=== PATIENT | male | born 1955 | race Hispanic/Latino ===

== ENCOUNTER → 2018-07-21 | Outpatient (CLI) | payer OTHER | END | disposition home or self-care (01) | LOC: OIH 09:44 | PROVIDERS: ATTEND Internal Medicine | DX: M85.842 Other specified disorders of bone density and structure, left hand (principal); M85.841 Other specified disorders of bone density and structure, right hand; M06.4 Inflammatory polyarthropathy | CPT/HCPCS: 73130 ==

== ENCOUNTER → 2020-06-17 | Outpatient (CLI) | payer OTHER, MEDICARE | END | disposition home or self-care (01) | LOC: SHCH 14:45 | PROVIDERS: ATTEND Internal Medicine Cardiovascular Disease | DX: I87.2 Venous insufficiency (chronic) (peripheral) (principal) | CPT/HCPCS: 93970 ==

== ENCOUNTER 2020-07-17 13:38 | Emergency (ER) | payer OTHER, MEDICARE ==
[2020-07-17] MEDS ORDERED: ALPRAZOLAM 0.25 MG TABLET ONE (14:45)
[2020-07-17 15:38] LABS: BASOPHILS % (AUTO) 0.3 % (0.0-5.0); EOSINOPHILS % (AUTO) 2.3 % (0.0-8.0); HEMATOCRIT 41.6 % (42-54); LYMPHOCYTES % (AUTO) 14.3 % (21.0-51.0); MEAN CORPUSCULAR HEMOGLOBIN 29.6 pg (27.0-33.0); MEAN CORPUSCULAR HGB CONC 33.2 g/dL (32.0-36.0); MEAN CORPUSCULAR VOLUME 89.1 fL (79-99); NEUTROPHILS % (AUTO) 72.4 % (40.0-77.0); PLATELET COUNT (AUTO) 266 K/uL (130-400); RED BLOOD CELL COUNT(AUTO) 4.67 MIL/uL (4.50-6.20); RED CELL DISTRIBUTION WIDTH 14.4 % (11.0-15.5); WHITE BLOOD COUNT (AUTO) 11.8 K/uL (4.8-10.8)
[2020-07-17 15:48] LABS: CREATININE 0.9 mg/dL (0.5-1.5)
== END 2020-07-17 16:22 | disposition home or self-care (01) ==
LOC: EDH 13:38
DX: J01.00 Acute maxillary sinusitis, unspecified (principal); E11.9 Type 2 diabetes mellitus without complications; I10 Essential (primary) hypertension; M06.9 Rheumatoid arthritis, unspecified; Z98.890 Other specified postprocedural states
CPT/HCPCS: 36415; 70450; 80048; 85025; 93005

== ENCOUNTER 2020-07-23 23:57 | Inpatient (IN) | payer OTHER, MEDICARE ==
[~2020-07-23] VITALS: Ht 175.3 cm; Wt 69.2 kg
[2020-07-24] VITALS (8 sets, daily range): BP systolic 148–157; BP diastolic 81–91
[2020-07-24] MEDS ORDERED: CEFTRIAXONE SODIUM 2 GM VIAL ONE (00:19)
[2020-07-24] MEDS ORDERED: AZITHROMYCIN 500MG+NS 250ML 250 ML IV ONE (00:19)
[2020-07-24 00:27] LABS: BASOPHILS % (AUTO) 0.2 % (0.0-5.0); HEMATOCRIT 44.8 % (42-54); LYMPHOCYTES % (AUTO) 11.7 % (21.0-51.0); MEAN CORPUSCULAR HEMOGLOBIN 29.1 pg (27.0-33.0); MEAN CORPUSCULAR HGB CONC 33.5 g/dL (32.0-36.0); PLATELET COUNT (AUTO) 196 K/uL (130-400); RED BLOOD CELL COUNT(AUTO) 5.15 MIL/uL (4.50-6.20); RED CELL DISTRIBUTION WIDTH 14.6 % (11.0-15.5); WHITE BLOOD COUNT (AUTO) 8.4 K/uL (4.8-10.8)
[2020-07-24 00:30] LABS: ABG BASE EXCESS -2.1 mmol/L (-2.0-3.0); ABG HCO3 20.5 mmol/L (21.0-28.0); ABG OXYGEN SATURATION 92.2 % (95.0-99.0); ABG PCO2 30 mmHg (35-48)
[2020-07-24 00:31] LABS: INR 0.93 (0.85-1.15); PARTIAL THROMBOPLASTIN TIME 27.4 SEC (26.3-35.5); PROTHROMBIN TIME 10.1 SEC (9.6-11.6)
[2020-07-24 00:37] LABS: ALBUMIN 3.7 g/dL (3.5-5.0); BILIRUBIN,TOTAL 0.4 mg/dL (0.2-1.0); CREATININE 1.1 mg/dL (0.5-1.5); POTASSIUM 4.3 mmol/L (3.5-5.1); TOTAL PROTEIN, SERUM 8.9 g/dL (6.0-8.3)
[2020-07-24 00:56] LABS: B-TYPE NATRIURETIC PEPTIDE 53 pg/mL (0-100)
[2020-07-24] MEDS ORDERED: DEXAMETHASONE SOD PHOSPHATE 10MG/ML 1ML VIAL ONE (01:07)
[2020-07-24] MEDS ORDERED: SODIUM CHLORIDE 0.9% 500ML 500 ML IV ONE (01:08)
[2020-07-24] MEDS ORDERED: ACETAMINOPHEN EXTRA STRENGTH 500 MG TABLET ONE (01:08)
[2020-07-24] MEDS ORDERED: IOHEXOL-350 75 ML VIAL IV ONE (01:33)
[2020-07-24] MEDS ORDERED: ACETAMINOPHEN 325 MG TAB PO PRN (03:00)
[2020-07-24] MEDS: CEFTRIAXONE SODIUM 1 GM IVP SCH (03:00)
[2020-07-24] MEDS ORDERED: ONDANSETRON HCL 4 MG/2 ML VIAL IVP PRN (03:00)
[2020-07-24 03:13] LABS: APPEARANCE,URINE Clear (CLEAR); BILIRUBIN,URINE Negative (NEGATIVE); COLOR,URINE Yellow (YELLOW); GLUCOSE, URINE (UA) 250 mg/dL (NEGATIVE); KETONES,URINE Trace mg/dL (NEGATIVE); LEUKOCYTE ESTERASE ,URINE Negative (NEGATIVE); NITRATE,URINE Negative (NEGATIVE); OCCULT BLOOD,URINE Small (NEGATIVE); PH,URINE 6.5 (5.0-8.0); PROTEIN,URINE POS 2+ mg/dL (NEGATIVE); UROBILINOGEN,URINE 0.2 mg/dL (0.2-1.0)
[2020-07-24 03:44] LABS: BACTERIA,URINE None Seen /HPF (None Seen); MUCUS,URINE Few LPF (None Seen); RBC,URINE 0-1 /HPF (0-1); WBC,URINE 0-1 /HPF (0-1)
[2020-07-24] MEDS: AZITHROMYCIN 500MG+NS 250ML 250 ML IV SCH ×2 (04:00→09:00)
[2020-07-24] MEDS ORDERED: IPRATROPIUM/ALBUTEROL SULFATE 3 ML SOLUTION IH SCH (06:00)
[2020-07-24] MEDS ORDERED: ALBUTEROL INHALER 90MCG/INH IH PRN (07:00)
[2020-07-24] MEDS ORDERED: ENOXAPARIN SODIUM 40 MG/0.4 ML SYRINGE SQ ONE (08:37)
[2020-07-24] MEDS ORDERED: PANTOPRAZOLE SODIUM 40 MG TABLET.DR ONE (08:38)
[2020-07-24] MEDS ORDERED: ENOXAPARIN SODIUM 40 MG/0.4 ML SYRINGE SQ SCH (09:00)
[2020-07-24] MEDS ORDERED: PHARMACY COMMUNICATION MISC SCH (09:45)
[2020-07-24 12:00] LABS: BASOPHILS % (AUTO) 0.2 % (0.0-5.0); HEMATOCRIT 43.9 % (42-54); LYMPHOCYTES % (AUTO) 6.4 % (21.0-51.0); MEAN CORPUSCULAR HEMOGLOBIN 29.5 pg (27.0-33.0); MEAN CORPUSCULAR HGB CONC 33.3 g/dL (32.0-36.0); MEAN CORPUSCULAR VOLUME 88.7 fL (79-99); MONOCYTES % (AUTO) 5.8 % (3.0-13.0); NEUTROPHILS % (AUTO) 86.5 % (40.0-77.0); PLATELET COUNT (AUTO) 194 K/uL (130-400); RED BLOOD CELL COUNT(AUTO) 4.95 MIL/uL (4.50-6.20); RED CELL DISTRIBUTION WIDTH 14.6 % (11.0-15.5); WHITE BLOOD COUNT (AUTO) 6.4 K/uL (4.8-10.8)
[2020-07-24 12:08] LABS: CREATININE 1.1 mg/dL (0.5-1.5); POTASSIUM 5.5 mmol/L (3.5-5.1)
[2020-07-24 12:23] LABS: ALBUMIN 3.2 g/dL (3.5-5.0); BILIRUBIN,TOTAL 0.4 mg/dL (0.2-1.0); TOTAL PROTEIN, SERUM 8.1 g/dL (6.0-8.3)
[2020-07-24] MEDS: MULTIVITAMIN TABLET PO SCH (12:33)
[2020-07-24] MEDS: ZINC SULFATE 220 CAPSULE PO SCH (12:33)
[2020-07-24] MEDS: DEXAMETHASONE 4 MG TAB PO SCH (12:33)
[2020-07-24] MEDS: PANTOPRAZOLE SODIUM 40 MG TABLET.DR PO SCH (12:34)
[2020-07-24] MEDS: ASCORBIC ACID 500 MG TAB PO SCH ×2 (12:34→19:31)
[2020-07-24] MEDS: OSELTAMIVIR PHOSPHATE 75 MG CAP PO SCH ×2 (12:34→19:31)
[2020-07-24] MEDS: PHARMACY COMMUNICATION MISC SCH ×2 (14:00→22:00)
[2020-07-24] MEDS: ENOXAPARIN SODIUM 40 MG/0.4 ML SYRINGE SQ SCH ×2 (18:00→19:31)
[2020-07-24] MEDS ORDERED: GLUCAGON 1MG KIT 1 MG ML IM PRN (18:00)
[2020-07-24] MEDS: INSULIN HUMULIN R 100 UNIT/ML 3ML SQ SCH (18:40)
[2020-07-24] MEDS ORDERED: TRAZODONE HCL 50 MG TAB ONE (22:37)
[2020-07-24] MEDS: TRAZODONE HCL 50 MG TAB PO SCH (22:56)
[2020-07-25] VITALS (25 sets, daily range): BP systolic 123–168; BP diastolic 62–91
[2020-07-25] MEDS: PHARMACY COMMUNICATION MISC SCH (02:00)
[2020-07-25] MEDS: CEFTRIAXONE SODIUM 1 GM IVP SCH (02:42)
[2020-07-25 05:19] LABS: BASOPHILS % (AUTO) 0.2 % (0.0-5.0); HEMATOCRIT 47.7 % (42-54); LYMPHOCYTES % (AUTO) 7.2 % (21.0-51.0); MEAN CORPUSCULAR HEMOGLOBIN 28.7 pg (27.0-33.0); MEAN CORPUSCULAR HGB CONC 32.5 g/dL (32.0-36.0); MEAN CORPUSCULAR VOLUME 88.2 fL (79-99); MONOCYTES % (AUTO) 6.9 % (3.0-13.0); NEUTROPHILS % (AUTO) 85.1 % (40.0-77.0); PLATELET COUNT (AUTO) 230 K/uL (130-400); RED BLOOD CELL COUNT(AUTO) 5.41 MIL/uL (4.50-6.20); RED CELL DISTRIBUTION WIDTH 14.4 % (11.0-15.5); WHITE BLOOD COUNT (AUTO) 11.8 K/uL (4.8-10.8)
--- NOTE | 2020-07-25 05:41 | NUR ---
Patient rested well during tour with no distress noted. alert and orient x4. Brace noted to left lower extremity with harper wrap tied around to hold brace in place. Patient state previous surgery approx 5 years ago. Brace taken off and no skin breakdown noted at this time. deformity noted. patient states he would like to sleep in brace. Brace placed on left lower extremity with no problems noted. right bka noted with stocking noted to stump. Able to turn self in bed with no problems. Patient states a lack of sleep. provider
[2020-07-25 05:46] LABS: ALBUMIN 3.2 g/dL (3.5-5.0); BILIRUBIN,TOTAL 0.3 mg/dL (0.2-1.0); CREATININE 1.2 mg/dL (0.5-1.5); POTASSIUM 4.8 mmol/L (3.5-5.1); TOTAL PROTEIN, SERUM 8.5 g/dL (6.0-8.3)
--- NOTE | 2020-07-25 05:51 | NUR ---
Patient rested well during tour with no distress noted. alert and orient x4. Brace noted to left lower extremity with harper wrap tied around to hold brace in place. Patient state previous surgery approx 5 years ago. Brace taken off and no skin breakdown noted at this time. deformity noted. patient states he would like to sleep in brace. Brace placed on left lower extremity with no problems noted. right bka noted with stocking noted to stump. Able to turn self in bed with no problems. Patient states a lack of sleep and not being able to sleep in the last three days. provider Quinn Mccarthy notified in regards to patient having insomnia and high blood pressures ranging 150s-160s systolic and diastolic max of 80s. Provider gave verbal order for insomnia and states no meds needed for bp at this time. Patient medicated for insomnia with noted drowsiness during tour. Patient continues to sleep well and easily aroused at this time. will communicate nurse to ensure patient has consent for plasma before administering. Patient resting well with no distress noted. bed locked in low position with siderails up x2. call light within reach. will continue to monitor as needed.
[2020-07-25] MEDS: INSULIN HUMULIN R 100 UNIT/ML 3ML SQ SCH ×6 (06:18→20:34)
[2020-07-25] MEDS: ASCORBIC ACID 500 MG TAB PO SCH ×2 (08:28→19:32)
[2020-07-25] MEDS: AZITHROMYCIN 500MG+NS 250ML 250 ML IV SCH (08:28)
[2020-07-25] MEDS: OSELTAMIVIR PHOSPHATE 75 MG CAP PO SCH ×2 (08:29→19:32)
[2020-07-25] MEDS: ZINC SULFATE 220 CAPSULE PO SCH (08:29)
[2020-07-25] MEDS: DEXAMETHASONE 4 MG TAB PO SCH (08:29)
[2020-07-25] MEDS: PANTOPRAZOLE SODIUM 40 MG TABLET.DR PO SCH (08:29)
[2020-07-25] MEDS: MULTIVITAMIN TABLET PO SCH (08:29)
[2020-07-25] MEDS: ENOXAPARIN SODIUM 40 MG/0.4 ML SYRINGE SQ SCH ×2 (08:30→19:32)
[2020-07-25] MEDS ORDERED: SODIUM CHLORIDE 0.9% 250 ML IV ONE (09:24)
--- NOTE | 2020-07-25 12:55 | NUR ---
CHART CHECK COMPLETED. Pt IS A 65 Y.O. MALE ADMITTED SECONDARY TO COVID PNEUMONIA. Pt HAS A PAST MEDICAL HISTORY SIGNIFICANT FOR DM, HTN, HLD, PVD WITH R BKA, DIABETIC NEUROPATHY, TOBACCO USE POSSIBLE COPD UNDERLYING. Pt CURRENTLY ON REGULAR TEXTURE, THIN LIQUID DIET. PLEASE REQUEST FORMAL SKILLED SPEECH/SWALLOW EVALUATION IF Pt PRESENTS WITH +S/S OF ASPIRATION SUCH COUGH RESPONSE, THROAT CLEAR, OR WET VOCAL QUALITY DURING P.O. Addendum: 07/25/20 at 1255 by TRISTON RITTER, [facility] Amended: Links added.
[2020-07-25] MEDS: LOSARTAN 50 MG TABLET PO SCH (13:37)
[2020-07-25] MEDS: METOPROLOL SUCCINATE 50 MG TAB.SR.24H PO SCH (13:37)
[2020-07-25] MEDS ORDERED: FUROSEMIDE 20 MG TABLET PO SCH (14:00)
--- NOTE | 2020-07-25 14:56 | NUR ---
1440 received telephone consent from for IM Letter(pt in [facility]), I faxed IM Letter to [phone].
--- NOTE | 2020-07-25 15:58 | NUR ---
DC PLAN VISITED WITH PATIENT. PATIENT LIVES WITH SPOUSE. SEMI INDEPENDENT ABLE TO PERFORM SOME ADL'S. PATIENT HAS WHEEL CHAIR. PROVIDER 32 HRS. FEELS SAFE TO RETURN HOME. Addendum: 07/25/20 at 1600 by BESSIE OBRIEN RN CM Amended: Links added.
[2020-07-25] MEDS ORDERED: REMDESIVIR (EUA) 520 200 MG in SODIUM CHLORIDE 0.9% 250 ML IV ONE (16:00)
[2020-07-25] MEDS ORDERED: COMPOUND IV REFRIGERATED 1 EACH IVSOLN MISC PRN (16:00)
[2020-07-25] MEDS: TRAZODONE HCL 100 MG TABLET PO SCH (19:32)
[2020-07-25] MEDS: DIAZEPAM 5 MG TABLET PO PRN (19:33)
[2020-07-25] MEDS: TRAZODONE HCL 50 MG TAB PO SCH (19:38)
[2020-07-25] MEDS: INSULIN GLARGINE 100 UNITS/ML 10 ML VIAL SQ SCH (21:00)
[2020-07-26] VITALS (14 sets, daily range): BP systolic 93–183; BP diastolic 44–93
[2020-07-26] MEDS: DIAZEPAM 5 MG TABLET PO PRN ×2 (03:03→11:36)
[2020-07-26] MEDS: CEFTRIAXONE SODIUM 1 GM IVP SCH (03:03)
[2020-07-26 04:10] LABS: HEMATOCRIT 42.3 % (42-54); MEAN CORPUSCULAR HEMOGLOBIN 28.8 pg (27.0-33.0); MEAN CORPUSCULAR HGB CONC 32.9 g/dL (32.0-36.0); MEAN CORPUSCULAR VOLUME 87.6 fL (79-99); RED BLOOD CELL COUNT(AUTO) 4.83 MIL/uL (4.50-6.20); RED CELL DISTRIBUTION WIDTH 14.1 % (11.0-15.5); WHITE BLOOD COUNT (AUTO) 11.2 K/uL (4.8-10.8)
[2020-07-26 04:40] LABS: CARBON DIOXIDE 25 mmol/L (21-32); CHLORIDE 97 mmol/L (101-111); CREATININE 0.9 mg/dL (0.5-1.5); GLOMERULAR FILTR. RATE CALC 89 mL/min (>60); GLUCOSE,RANDOM 130 mg/dL (70-105); LACTATE DEHYDROGENASE 648 U/L (81-234); POTASSIUM 3.9 mmol/L (3.5-5.1); SODIUM SERUM 133 mmol/L (136-145); UREA NITROGEN, BLOOD 17 mg/dL (7-18)
[2020-07-26] MEDS: PHARMACY COMMUNICATION MISC SCH (06:00)
[2020-07-26] MEDS: INSULIN HUMULIN R 100 UNIT/ML 3ML SQ SCH ×7 (06:22→21:00)
--- NOTE | 2020-07-26 06:38 | NUR ---
Brace noted to left lower extremity with harper wrap tied around to hold brace in place taken off before patient went to bed. Patient state previous surgery approx 5 years ago. Able to turn self in bed with no problems. Anxiety noted during tour and patient medicated as ordered x2. patient continues to states he can not breath with a nonrebreather with sats ranging from 94-100%. RT notified and assess and states will continue to monitor patient. Bed locked in low position with siderails up x2. call light within reach. will continue to monitor during tour as needed.
[2020-07-26] MEDS: INSULIN GLARGINE 100 UNITS/ML 10 ML VIAL SQ SCH ×2 (09:30→22:00)
[2020-07-26] MEDS: AZITHROMYCIN 500MG+NS 250ML 250 ML IV SCH (09:35)
[2020-07-26] MEDS: OSELTAMIVIR PHOSPHATE 75 MG CAP PO SCH ×2 (09:38→22:00)
[2020-07-26] MEDS: ZINC SULFATE 220 CAPSULE PO SCH (09:38)
[2020-07-26] MEDS: ASPIRIN 81MG TAB.CHEW PO SCH (09:38)
[2020-07-26] MEDS: MULTIVITAMIN TABLET PO SCH (09:38)
[2020-07-26] MEDS: DEXAMETHASONE 4 MG TAB PO SCH (09:39)
[2020-07-26] MEDS: LOSARTAN 50 MG TABLET PO SCH (09:40)
[2020-07-26] MEDS: METOPROLOL SUCCINATE 50 MG TAB.SR.24H PO SCH (09:40)
[2020-07-26] MEDS: ASCORBIC ACID 500 MG TAB PO SCH ×2 (09:41→22:00)
[2020-07-26] MEDS: PANTOPRAZOLE SODIUM 40 MG TABLET.DR PO SCH (09:41)
[2020-07-26] MEDS: ENOXAPARIN SODIUM 40 MG/0.4 ML SYRINGE SQ SCH ×2 (09:42→22:00)
[2020-07-26 09:51] LABS: ALBUMIN 3.2 g/dL (3.5-5.0); BILIRUBIN,DIRECT 0.2 mg/dL (0.0-0.3); BILIRUBIN,TOTAL 0.6 mg/dL (0.2-1.0); TOTAL PROTEIN, SERUM 8.4 g/dL (6.0-8.3)
[2020-07-26 09:56] LABS: CREATININE 1.1 mg/dL (0.5-1.5)
[2020-07-26] MEDS: REMDESIVIR (EUA) 520 100 MG in SODIUM CHLORIDE 0.9% 250 ML IV SCH (15:22)
[2020-07-26] MEDS ORDERED: FUROSEMIDE 10 MG/ML 2ML VIAL IV SCH (18:00)
[2020-07-26] MEDS: ARTIFICIAL TEARS 3.5 GM OINTMENT OU SCH (22:00)
[2020-07-26] MEDS: TRAZODONE HCL 100 MG TABLET PO SCH (22:00)
[2020-07-26] MEDS: DEXAMETHASONE SOD PHOSPHATE 4 MG/ML 1ML VIAL IVP SCH (22:00)
[2020-07-26] MEDS: TRAZODONE HCL 50 MG TAB PO SCH (22:00)
[2020-07-27] VITALS (25 sets, daily range): BP systolic 94–149; BP diastolic 56–76
[2020-07-27 04:34] LABS: ABG BASE EXCESS -1.9 mmol/L (-2.0-3.0); ABG HCO3 21.7 mmol/L (21.0-28.0); ABG OXYGEN SATURATION 92.1 % (95.0-99.0); ABG PCO2 34 mmHg (35-48)
[2020-07-27 05:22] LABS: BASOPHILS % (AUTO) 0.2 % (0.0-5.0); EOSINOPHILS % (AUTO) 3.5 % (0.0-8.0); HEMATOCRIT 41.2 % (42-54); MEAN CORPUSCULAR HEMOGLOBIN 28.6 pg (27.0-33.0); MEAN CORPUSCULAR VOLUME 86.7 fL (79-99); MONOCYTES % (AUTO) 4.4 % (3.0-13.0); NEUTROPHILS % (AUTO) 84.2 % (40.0-77.0); PLATELET COUNT (AUTO) 158 K/uL (130-400); RED BLOOD CELL COUNT(AUTO) 4.75 MIL/uL (4.50-6.20); RED CELL DISTRIBUTION WIDTH 14.1 % (11.0-15.5)
[2020-07-27 05:35] LABS: CREATININE 0.9 mg/dL (0.5-1.5); POTASSIUM 4.1 mmol/L (3.5-5.1)
[2020-07-27] MEDS: PHARMACY COMMUNICATION MISC SCH (06:00)
[2020-07-27] MEDS: CEFTRIAXONE SODIUM 1 GM IVP SCH (06:50)
[2020-07-27] MEDS: INSULIN HUMULIN R 100 UNIT/ML 3ML SQ SCH ×8 (06:58→21:14)
[2020-07-27] MEDS: ZINC SULFATE 220 CAPSULE PO SCH (09:31)
[2020-07-27] MEDS: LOSARTAN 50 MG TABLET PO SCH (09:31)
[2020-07-27] MEDS: MULTIVITAMIN TABLET PO SCH (09:31)
[2020-07-27] MEDS: METOPROLOL SUCCINATE 50 MG TAB.SR.24H PO SCH (09:31)
[2020-07-27] MEDS: ASPIRIN 81MG TAB.CHEW PO SCH (09:31)
[2020-07-27] MEDS: DEXAMETHASONE SOD PHOSPHATE 4 MG/ML 1ML VIAL IVP SCH ×2 (09:31→21:05)
[2020-07-27] MEDS: ASCORBIC ACID 500 MG TAB PO SCH ×2 (09:31→21:02)
[2020-07-27] MEDS: OSELTAMIVIR PHOSPHATE 75 MG CAP PO SCH ×2 (09:31→21:02)
[2020-07-27] MEDS: ENOXAPARIN SODIUM 40 MG/0.4 ML SYRINGE SQ SCH ×2 (09:32→21:06)
[2020-07-27] MEDS: AZITHROMYCIN 500MG+NS 250ML 250 ML IV SCH (09:32)
[2020-07-27 09:35] LABS: ALBUMIN 2.9 g/dL (3.5-5.0); BILIRUBIN,DIRECT 0.2 mg/dL (0.0-0.3); BILIRUBIN,TOTAL 0.6 mg/dL (0.2-1.0); TOTAL PROTEIN, SERUM 7.3 g/dL (6.0-8.3)
[2020-07-27] MEDS: INSULIN GLARGINE 100 UNITS/ML 10 ML VIAL SQ SCH ×2 (09:35→21:11)
[2020-07-27] MEDS: PANTOPRAZOLE SODIUM 40 MG TABLET.DR PO SCH (09:55)
[2020-07-27] MEDS: REMDESIVIR (EUA) 520 100 MG in SODIUM CHLORIDE 0.9% 250 ML IV SCH (18:24)
[2020-07-27] MEDS: ARTIFICIAL TEARS 3.5 GM OINTMENT OU SCH (21:00)
[2020-07-27] MEDS: DIAZEPAM 5 MG TABLET PO PRN (21:02)
[2020-07-27] MEDS: TRAZODONE HCL 100 MG TABLET PO SCH (21:02)
[2020-07-27] MEDS: FUROSEMIDE 10 MG/ML 2ML VIAL IV SCH (21:04)
[2020-07-27] MEDS: ACETAMINOPHEN 325 MG TAB PO PRN (21:04)
[2020-07-27] MEDS: TRAZODONE HCL 50 MG TAB PO SCH (22:45)
[2020-07-28] VITALS (20 sets, daily range): BP systolic 99–159; BP diastolic 51–84
[2020-07-28 04:25] LABS: HEMATOCRIT 39.8 % (42-54); MEAN CORPUSCULAR HEMOGLOBIN 29.6 pg (27.0-33.0); MEAN CORPUSCULAR HGB CONC 34.2 g/dL (32.0-36.0); MEAN CORPUSCULAR VOLUME 86.5 fL (79-99); RED BLOOD CELL COUNT(AUTO) 4.6 MIL/uL (4.50-6.20); RED CELL DISTRIBUTION WIDTH 14.2 % (11.0-15.5); WHITE BLOOD COUNT (AUTO) 8.7 K/uL (4.8-10.8)
[2020-07-28 04:40] LABS: ALBUMIN 2.8 g/dL (3.5-5.0); BILIRUBIN,DIRECT 0.2 mg/dL (0.0-0.3); BILIRUBIN,TOTAL 0.6 mg/dL (0.2-1.0); CREATININE 0.9 mg/dL (0.5-1.5); CRP QUANTITATIVE 85.9 mg/L (0.00-9.0); POTASSIUM 3.9 mmol/L (3.5-5.1); TOTAL PROTEIN, SERUM 7.2 g/dL (6.0-8.3)
[2020-07-28] MEDS: CEFTRIAXONE SODIUM 1 GM IVP SCH (04:57)
[2020-07-28] MEDS: PHARMACY COMMUNICATION MISC SCH (06:00)
[2020-07-28 07:17] LABS: ABG BASE EXCESS -2.6 mmol/L (-2.0-3.0); ABG HCO3 21.5 mmol/L (21.0-28.0); ABG OXYGEN SATURATION 98.3 % (95.0-99.0); ABG PCO2 35 mmHg (35-48)
[2020-07-28] MEDS: INSULIN HUMULIN R 100 UNIT/ML 3ML SQ SCH ×4 (07:30→19:45)
[2020-07-28] MEDS: ASCORBIC ACID 500 MG TAB PO SCH ×2 (09:47→19:35)
[2020-07-28] MEDS: ZINC SULFATE 220 CAPSULE PO SCH (09:47)
[2020-07-28] MEDS: DEXAMETHASONE SOD PHOSPHATE 4 MG/ML 1ML VIAL IVP SCH ×2 (09:47→19:34)
[2020-07-28] MEDS: ASPIRIN 81MG TAB.CHEW PO SCH (09:47)
[2020-07-28] MEDS: METOPROLOL SUCCINATE 50 MG TAB.SR.24H PO SCH (09:47)
[2020-07-28] MEDS: OSELTAMIVIR PHOSPHATE 75 MG CAP PO SCH ×2 (09:47→19:35)
[2020-07-28] MEDS: AZITHROMYCIN 500MG+NS 250ML 250 ML IV SCH (09:47)
[2020-07-28] MEDS: ENOXAPARIN SODIUM 40 MG/0.4 ML SYRINGE SQ SCH ×2 (09:48→19:35)
[2020-07-28] MEDS: MULTIVITAMIN TABLET PO SCH (09:48)
[2020-07-28] MEDS: PANTOPRAZOLE SODIUM 40 MG TABLET.DR PO SCH (09:48)
[2020-07-28] MEDS: INSULIN GLARGINE 100 UNITS/ML 10 ML VIAL SQ SCH ×2 (10:03→19:46)
[2020-07-28] MEDS: LOSARTAN 50 MG TABLET PO SCH (10:03)
[2020-07-28] MEDS: FUROSEMIDE 10 MG/ML 2ML VIAL IV SCH ×2 (10:40→19:34)
[2020-07-28] MEDS: REMDESIVIR (EUA) 520 100 MG in SODIUM CHLORIDE 0.9% 250 ML IV SCH (17:00)
[2020-07-28] MEDS: ARTIFICIAL TEARS 3.5 GM OINTMENT OU SCH (19:35)
[2020-07-28] MEDS: TRAZODONE HCL 100 MG TABLET PO SCH (19:35)
[2020-07-28] MEDS: TRAZODONE HCL 50 MG TAB PO SCH (19:36)
[2020-07-28] MEDS: DIAZEPAM 5 MG TABLET PO PRN (20:31)
[2020-07-29] VITALS (16 sets, daily range): BP systolic 110–149; BP diastolic 62–84
[2020-07-29] MEDS: CEFTRIAXONE SODIUM 1 GM IVP SCH (03:00)
[2020-07-29 04:16] LABS: ALBUMIN 2.8 g/dL (3.5-5.0); BILIRUBIN,DIRECT 0.2 mg/dL (0.0-0.3); BILIRUBIN,TOTAL 0.5 mg/dL (0.2-1.0); CREATININE 0.9 mg/dL (0.5-1.5); CRP QUANTITATIVE 60.8 mg/L (0.00-9.0); POTASSIUM 3.7 mmol/L (3.5-5.1); TOTAL PROTEIN, SERUM 7.3 g/dL (6.0-8.3)
[2020-07-29 04:24] LABS: MAGNESIUM 2.5 mg/dL (1.80-2.40)
[2020-07-29 04:33] LABS: BASOPHILS % (AUTO) 0.2 % (0.0-5.0); HEMATOCRIT 41.5 % (42-54); LYMPHOCYTES % (AUTO) 6.9 % (21.0-51.0); MEAN CORPUSCULAR HEMOGLOBIN 29.3 pg (27.0-33.0); MEAN CORPUSCULAR VOLUME 86.3 fL (79-99); MONOCYTES % (AUTO) 7.8 % (3.0-13.0); NEUTROPHILS % (AUTO) 84.7 % (40.0-77.0); PLATELET COUNT (AUTO) 266 K/uL (130-400); RED BLOOD CELL COUNT(AUTO) 4.81 MIL/uL (4.50-6.20); RED CELL DISTRIBUTION WIDTH 14.1 % (11.0-15.5); WHITE BLOOD COUNT (AUTO) 10.2 K/uL (4.8-10.8)
[2020-07-29] MEDS: INSULIN HUMULIN R 100 UNIT/ML 3ML SQ SCH ×4 (06:24→22:01)
[2020-07-29] MEDS: INSULIN GLARGINE 100 UNITS/ML 10 ML VIAL SQ SCH ×2 (06:25→22:00)
[2020-07-29] MEDS: PHARMACY COMMUNICATION MISC SCH ×2 (06:41→13:55)
[2020-07-29] MEDS: OSELTAMIVIR PHOSPHATE 75 MG CAP PO SCH (10:19)
[2020-07-29] MEDS: LOSARTAN 50 MG TABLET PO SCH (10:19)
[2020-07-29] MEDS: MULTIVITAMIN TABLET PO SCH (10:19)
[2020-07-29] MEDS: PANTOPRAZOLE SODIUM 40 MG TABLET.DR PO SCH (10:19)
[2020-07-29] MEDS: DEXAMETHASONE SOD PHOSPHATE 4 MG/ML 1ML VIAL IVP SCH ×2 (10:20→20:56)
[2020-07-29] MEDS: FUROSEMIDE 10 MG/ML 2ML VIAL IV SCH ×2 (10:20→20:55)
[2020-07-29] MEDS: METOPROLOL SUCCINATE 50 MG TAB.SR.24H PO SCH (10:20)
[2020-07-29] MEDS: ZINC SULFATE 220 CAPSULE PO SCH (10:20)
[2020-07-29] MEDS: ASCORBIC ACID 500 MG TAB PO SCH ×2 (10:21→20:56)
[2020-07-29] MEDS: AZITHROMYCIN 500MG+NS 250ML 250 ML IV SCH (10:21)
[2020-07-29] MEDS: ENOXAPARIN SODIUM 40 MG/0.4 ML SYRINGE SQ SCH ×2 (10:21→20:57)
[2020-07-29] MEDS: ASPIRIN 81MG TAB.CHEW PO SCH (10:21)
--- NOTE | 2020-07-29 13:35 | NUR ---
Pt moved from to Report received from Ashly YEUNG. Assumed pt care. Pt attached to bedside continuos pulse ox monitor. Pulse ox 90% on HFNC fiO2 55% at 40L NAD. No complaints at this time
[2020-07-29] MEDS: REMDESIVIR (EUA) 520 100 MG in SODIUM CHLORIDE 0.9% 250 ML IV SCH (14:49)
[2020-07-29] MEDS: TRAZODONE HCL 50 MG TAB PO SCH (19:50)
[2020-07-29] MEDS: ARTIFICIAL TEARS 3.5 GM OINTMENT OU SCH (20:56)
[2020-07-29] MEDS: DIAZEPAM 5 MG TABLET PO PRN (20:56)
[2020-07-29] MEDS: TRAZODONE HCL 100 MG TABLET PO SCH (20:56)
[2020-07-30] MEDS: CEFTRIAXONE SODIUM 1 GM IVP SCH (03:00)
[2020-07-30 03:27] VITALS: BP 116/66
[2020-07-30 04:28] LABS: ABG BASE EXCESS -1.7 mmol/L (-2.0-3.0); ABG HCO3 21.5 mmol/L (21.0-28.0); ABG OXYGEN SATURATION 88.9 % (95.0-99.0); ABG PCO2 32 mmHg (35-48)
--- NOTE | 2020-07-30 05:06 | NUR ---
P/F ration is 66.2 Addendum: 07/30/20 at 0508 by NEEL ABRAHAM RT Amended: Links added.
[2020-07-30 05:57] LABS: HEMATOCRIT 47.8 % (42-54); MEAN CORPUSCULAR HGB CONC 33.1 g/dL (32.0-36.0); MEAN CORPUSCULAR VOLUME 87.9 fL (79-99); RED BLOOD CELL COUNT(AUTO) 5.44 MIL/uL (4.50-6.20); RED CELL DISTRIBUTION WIDTH 14.3 % (11.0-15.5); WHITE BLOOD COUNT (AUTO) 13.5 K/uL (4.8-10.8)
[2020-07-30] MEDS: PHARMACY COMMUNICATION MISC SCH ×5 (06:00→18:00)
[2020-07-30 06:08] LABS: CREATININE 0.9 mg/dL (0.5-1.5); CRP QUANTITATIVE 29.7 mg/L (0.00-9.0); POTASSIUM 4.1 mmol/L (3.5-5.1)
[2020-07-30] MEDS: INSULIN GLARGINE 100 UNITS/ML 10 ML VIAL SQ SCH ×2 (06:40→20:55)
[2020-07-30] MEDS: INSULIN HUMULIN R 100 UNIT/ML 3ML SQ SCH ×4 (06:41→21:00)
[2020-07-30 08:00] VITALS: BP 116/71
[2020-07-30] MEDS: FUROSEMIDE 10 MG/ML 2ML VIAL IV SCH ×2 (08:36→20:51)
[2020-07-30] MEDS: ASPIRIN 81MG TAB.CHEW PO SCH (08:37)
[2020-07-30] MEDS: AZITHROMYCIN 500MG+NS 250ML 250 ML IV SCH (08:37)
[2020-07-30] MEDS: DEXAMETHASONE SOD PHOSPHATE 4 MG/ML 1ML VIAL IVP SCH ×2 (08:37→20:52)
[2020-07-30] MEDS: ENOXAPARIN SODIUM 40 MG/0.4 ML SYRINGE SQ SCH ×2 (08:38→20:53)
[2020-07-30] MEDS: MULTIVITAMIN TABLET PO SCH (08:39)
[2020-07-30] MEDS: METOPROLOL SUCCINATE 50 MG TAB.SR.24H PO SCH (08:39)
[2020-07-30] MEDS: ASCORBIC ACID 500 MG TAB PO SCH ×2 (08:39→20:50)
[2020-07-30] MEDS: PANTOPRAZOLE SODIUM 40 MG TABLET.DR PO SCH (08:39)
[2020-07-30] MEDS: LOSARTAN 50 MG TABLET PO SCH (08:39)
[2020-07-30] MEDS: ZINC SULFATE 220 CAPSULE PO SCH (08:39)
[2020-07-30] MEDS: DIAZEPAM 5 MG TABLET PO PRN (12:42)
[2020-07-30 12:50] VITALS: BP 104/49
[2020-07-30 16:34] VITALS: BP 112/66
--- NOTE | 2020-07-30 18:42 | NUR ---
Pt encouraged to prone or side lie all day. Pt repeatedly continues to refuse. O2 sats maintained > 88% on HFNC fiO2 70% on 50L
[2020-07-30] MEDS: TRAZODONE HCL 50 MG TAB PO SCH (20:13)
[2020-07-30 20:19] VITALS: BP 127/75
[2020-07-30] MEDS: ARTIFICIAL TEARS 3.5 GM OINTMENT OU SCH (20:50)
[2020-07-30] MEDS: TRAZODONE HCL 100 MG TABLET PO SCH (20:50)
[2020-07-31] VITALS (7 sets, daily range): BP systolic 92–133; BP diastolic 46–91
[2020-07-31] MEDS: CEFTRIAXONE SODIUM 1 GM IVP SCH (02:56)
[2020-07-31 04:27] LABS: ABG HCO3 26.4 mmol/L (21.0-28.0); ABG OXYGEN SATURATION 97.2 % (95.0-99.0); ABG PCO2 37 mmHg (35-48)
[2020-07-31 05:24] LABS: BASOPHILS % (AUTO) 0.2 % (0.0-5.0); HEMATOCRIT 45.9 % (42-54); LYMPHOCYTES % (AUTO) 5.8 % (21.0-51.0); MEAN CORPUSCULAR HEMOGLOBIN 28.9 pg (27.0-33.0); MEAN CORPUSCULAR HGB CONC 33.3 g/dL (32.0-36.0); MEAN CORPUSCULAR VOLUME 86.6 fL (79-99); MONOCYTES % (AUTO) 4.7 % (3.0-13.0); NEUTROPHILS % (AUTO) 88.6 % (40.0-77.0); PLATELET COUNT (AUTO) 253 K/uL (130-400); RED CELL DISTRIBUTION WIDTH 13.9 % (11.0-15.5); WHITE BLOOD COUNT (AUTO) 12.2 K/uL (4.8-10.8)
[2020-07-31 05:43] LABS: ALANINE AMINOTRANSFERASE 38 U/L (12-78); ALBUMIN 2.7 g/dL (3.5-5.0); ASPARTATE AMINOTRANSFERASE 29 U/L (10-37); BILIRUBIN,TOTAL 0.8 mg/dL (0.2-1.0); CARBON DIOXIDE 24 mmol/L (21-32); CHLORIDE 101 mmol/L (101-111); CREATININE 0.8 mg/dL (0.5-1.5); GLOMERULAR FILTR. RATE CALC 102 mL/min (>60); GLUCOSE,RANDOM 156 mg/dL (70-105); POTASSIUM 3.7 mmol/L (3.5-5.1); SODIUM SERUM 132 mmol/L (136-145); TOTAL PROTEIN, SERUM 7.3 g/dL (6.0-8.3); UREA NITROGEN, BLOOD 28 mg/dL (7-18)
[2020-07-31] MEDS: INSULIN HUMULIN R 100 UNIT/ML 3ML SQ SCH ×4 (06:31→21:00)
[2020-07-31] MEDS: INSULIN GLARGINE 100 UNITS/ML 10 ML VIAL SQ SCH ×2 (06:41→21:07)
[2020-07-31] MEDS: PANTOPRAZOLE SODIUM 40 MG TABLET.DR PO SCH (09:13)
[2020-07-31] MEDS: ASPIRIN 81MG TAB.CHEW PO SCH (09:13)
[2020-07-31] MEDS: MULTIVITAMIN TABLET PO SCH (09:13)
[2020-07-31] MEDS: ENOXAPARIN SODIUM 40 MG/0.4 ML SYRINGE SQ SCH ×2 (09:13→21:06)
[2020-07-31] MEDS: FUROSEMIDE 10 MG/ML 2ML VIAL IV SCH ×2 (09:14→21:05)
[2020-07-31] MEDS: AZITHROMYCIN 500MG+NS 250ML 250 ML IV SCH (09:14)
[2020-07-31] MEDS: METOPROLOL SUCCINATE 50 MG TAB.SR.24H PO SCH (09:14)
[2020-07-31] MEDS: ASCORBIC ACID 500 MG TAB PO SCH ×2 (09:14→21:09)
[2020-07-31] MEDS: ZINC SULFATE 220 CAPSULE PO SCH (09:14)
[2020-07-31] MEDS: LOSARTAN 50 MG TABLET PO SCH (09:14)
[2020-07-31] MEDS: DEXAMETHASONE SOD PHOSPHATE 4 MG/ML 1ML VIAL IVP SCH ×2 (09:15→21:04)
[2020-07-31] MEDS: TRAZODONE HCL 100 MG TABLET PO SCH (21:05)
[2020-07-31] MEDS: ARTIFICIAL TEARS 3.5 GM OINTMENT OU SCH (21:08)
[2020-07-31] MEDS: TRAZODONE HCL 50 MG TAB PO SCH (22:45)
[2020-08-01 04:12] VITALS: BP 123/72
[2020-08-01 04:17] LABS: BASOPHILS % (AUTO) 0.1 % (0.0-5.0); LYMPHOCYTES % (AUTO) 5.6 % (21.0-51.0); MEAN CORPUSCULAR HEMOGLOBIN 29.2 pg (27.0-33.0); MEAN CORPUSCULAR HGB CONC 34.1 g/dL (32.0-36.0); MEAN CORPUSCULAR VOLUME 85.4 fL (79-99); MONOCYTES % (AUTO) 2.9 % (3.0-13.0); NEUTROPHILS % (AUTO) 90.6 % (40.0-77.0); PLATELET COUNT (AUTO) 329 K/uL (130-400); RED CELL DISTRIBUTION WIDTH 13.8 % (11.0-15.5); WHITE BLOOD COUNT (AUTO) 11.7 K/uL (4.8-10.8)
[2020-08-01 04:51] LABS: ALBUMIN 2.4 g/dL (3.5-5.0); BILIRUBIN,TOTAL 0.8 mg/dL (0.2-1.0); CREATININE 0.9 mg/dL (0.5-1.5); MAGNESIUM 2.5 mg/dL (1.80-2.40); PHOSPHORUS 4.4 mg/dL (2.5-4.9); POTASSIUM 3.4 mmol/L (3.5-5.1); TOTAL PROTEIN, SERUM 7.1 g/dL (6.0-8.3)
[2020-08-01] MEDS: INSULIN HUMULIN R 100 UNIT/ML 3ML SQ SCH ×4 (06:06→21:32)
[2020-08-01] MEDS ORDERED: POTASSIUM CHLORIDE 10% ELIXIR 20 MEQ/15 ML UDCUP ONE (06:10)
[2020-08-01] MEDS ORDERED: POTASSIUM CHLORIDE 20MEQ/100ML 100 ML IV PRN (06:15)
[2020-08-01] MEDS ORDERED: POTASSIUM CHLORIDE 10% ELIXIR 20 MEQ/15 ML UDCUP PO PRN (06:15)
[2020-08-01] MEDS ORDERED: LIDOCAINE HCL-MPF 1% 2ML VIAL IJ PRN (06:15)
[2020-08-01 07:59] VITALS: BP 114/64
[2020-08-01] MEDS: METOPROLOL SUCCINATE 50 MG TAB.SR.24H PO SCH (08:23)
[2020-08-01] MEDS: FUROSEMIDE 10 MG/ML 2ML VIAL IV SCH ×2 (08:26→21:27)
[2020-08-01] MEDS: MULTIVITAMIN TABLET PO SCH (08:26)
[2020-08-01] MEDS: ASCORBIC ACID 500 MG TAB PO SCH ×2 (08:26→21:26)
[2020-08-01] MEDS: DEXAMETHASONE SOD PHOSPHATE 4 MG/ML 1ML VIAL IVP SCH ×2 (08:26→21:27)
[2020-08-01] MEDS: ZINC SULFATE 220 CAPSULE PO SCH (08:27)
[2020-08-01] MEDS: ASPIRIN 81MG TAB.CHEW PO SCH (08:27)
[2020-08-01] MEDS: LOSARTAN 50 MG TABLET PO SCH (08:27)
[2020-08-01] MEDS: PANTOPRAZOLE SODIUM 40 MG TABLET.DR PO SCH (08:27)
[2020-08-01] MEDS: ENOXAPARIN SODIUM 40 MG/0.4 ML SYRINGE SQ SCH ×2 (08:28→21:30)
[2020-08-01] MEDS: INSULIN GLARGINE 100 UNITS/ML 10 ML VIAL SQ SCH ×2 (08:30→21:31)
[2020-08-01] MEDS: DIAZEPAM 5 MG TABLET PO PRN (10:42)
[2020-08-01 11:51] VITALS: BP 105/61
[2020-08-01 16:09] VITALS: BP 105/53
[2020-08-01 19:00] VITALS: BP 130/67
[2020-08-01] MEDS: TRAZODONE HCL 100 MG TABLET PO SCH (21:26)
[2020-08-01] MEDS: TRAZODONE HCL 50 MG TAB PO SCH (21:33)
[2020-08-01] MEDS: ARTIFICIAL TEARS 3.5 GM OINTMENT OU SCH (21:33)
[2020-08-01 23:00] VITALS: BP 119/62
[2020-08-02 03:00] VITALS: BP 125/70
[2020-08-02 06:02] LABS: BASOPHILS % (AUTO) 0.2 % (0.0-5.0); HEMATOCRIT 43.1 % (42-54); LYMPHOCYTES % (AUTO) 3.3 % (21.0-51.0); MEAN CORPUSCULAR HEMOGLOBIN 28.8 pg (27.0-33.0); MEAN CORPUSCULAR HGB CONC 33.2 g/dL (32.0-36.0); MEAN CORPUSCULAR VOLUME 86.7 fL (79-99); MONOCYTES % (AUTO) 2.9 % (3.0-13.0); NEUTROPHILS % (AUTO) 92.5 % (40.0-77.0); PLATELET COUNT (AUTO) 310 K/uL (130-400); RED BLOOD CELL COUNT(AUTO) 4.97 MIL/uL (4.50-6.20); WHITE BLOOD COUNT (AUTO) 12.9 K/uL (4.8-10.8)
[2020-08-02] MEDS: INSULIN HUMULIN R 100 UNIT/ML 3ML SQ SCH ×4 (06:26→21:34)
[2020-08-02 06:29] LABS: ALBUMIN 2.5 g/dL (3.5-5.0); BILIRUBIN,TOTAL 0.8 mg/dL (0.2-1.0); CREATININE 0.8 mg/dL (0.5-1.5); MAGNESIUM 2.6 mg/dL (1.80-2.40); PHOSPHORUS 4.3 mg/dL (2.5-4.9); POTASSIUM 4.2 mmol/L (3.5-5.1)
[2020-08-02 08:20] VITALS: BP 108/63
[2020-08-02] MEDS: DEXAMETHASONE SOD PHOSPHATE 4 MG/ML 1ML VIAL IVP SCH ×2 (08:32→21:36)
[2020-08-02] MEDS: ZINC SULFATE 220 CAPSULE PO SCH (08:32)
[2020-08-02] MEDS: ASCORBIC ACID 500 MG TAB PO SCH ×2 (08:32→21:34)
[2020-08-02] MEDS: FUROSEMIDE 10 MG/ML 2ML VIAL IV SCH ×2 (08:32→21:37)
[2020-08-02] MEDS: ASPIRIN 81MG TAB.CHEW PO SCH (08:32)
[2020-08-02] MEDS: PANTOPRAZOLE SODIUM 40 MG TABLET.DR PO SCH (08:33)
[2020-08-02] MEDS: ENOXAPARIN SODIUM 40 MG/0.4 ML SYRINGE SQ SCH ×2 (08:33→21:36)
[2020-08-02] MEDS: LOSARTAN 50 MG TABLET PO SCH (08:33)
[2020-08-02] MEDS: METOPROLOL SUCCINATE 50 MG TAB.SR.24H PO SCH (08:33)
[2020-08-02] MEDS: INSULIN GLARGINE 100 UNITS/ML 10 ML VIAL SQ SCH ×2 (08:34→21:34)
[2020-08-02] MEDS: MULTIVITAMIN TABLET PO SCH (08:36)
[2020-08-02 12:53] VITALS: BP 90/53
[2020-08-02 16:30] VITALS: BP 110/64
[2020-08-02 19:30] VITALS: BP 117/74
[2020-08-02] MEDS: ARTIFICIAL TEARS 3.5 GM OINTMENT OU SCH (21:00)
[2020-08-02] MEDS: TRAZODONE HCL 100 MG TABLET PO SCH (21:36)
[2020-08-02 23:11] VITALS: BP 135/68
[2020-08-03] MEDS: DIAZEPAM 5 MG TABLET PO PRN ×2 (01:17→22:41)
[2020-08-03] MEDS: ACETAMINOPHEN 325 MG TAB PO PRN ×2 (01:17→19:58)
[2020-08-03 03:53] VITALS: BP 114/65
[2020-08-03 03:55] LABS: ABG BASE EXCESS 1.9 mmol/L (-2.0-3.0); ABG HCO3 24.4 mmol/L (21.0-28.0); ABG OXYGEN SATURATION 89.8 % (95.0-99.0); ABG PCO2 32 mmHg (35-48)
[2020-08-03] MEDS: INSULIN HUMULIN R 100 UNIT/ML 3ML SQ SCH ×4 (05:35→20:11)
[2020-08-03 05:52] LABS: BASOPHILS % (AUTO) 0.2 % (0.0-5.0); EOSINOPHILS % (AUTO) 0.1 % (0.0-8.0); HEMATOCRIT 44.1 % (42-54); LYMPHOCYTES % (AUTO) 3.9 % (21.0-51.0); MEAN CORPUSCULAR HEMOGLOBIN 28.8 pg (27.0-33.0); MEAN CORPUSCULAR HGB CONC 33.3 g/dL (32.0-36.0); MEAN CORPUSCULAR VOLUME 86.3 fL (79-99); NEUTROPHILS % (AUTO) 91.8 % (40.0-77.0); PLATELET COUNT (AUTO) 347 K/uL (130-400); RED BLOOD CELL COUNT(AUTO) 5.11 MIL/uL (4.50-6.20); RED CELL DISTRIBUTION WIDTH 13.8 % (11.0-15.5); WHITE BLOOD COUNT (AUTO) 13.2 K/uL (4.8-10.8)
[2020-08-03 06:16] LABS: ALBUMIN 2.5 g/dL (3.5-5.0); BILIRUBIN,TOTAL 0.9 mg/dL (0.2-1.0); CREATININE 0.8 mg/dL (0.5-1.5); MAGNESIUM 2.6 mg/dL (1.80-2.40); PHOSPHORUS 4.2 mg/dL (2.5-4.9); POTASSIUM 3.5 mmol/L (3.5-5.1); TOTAL PROTEIN, SERUM 7.2 g/dL (6.0-8.3)
[2020-08-03] MEDS: INSULIN GLARGINE 100 UNITS/ML 10 ML VIAL SQ SCH ×2 (06:56→20:05)
[2020-08-03 08:00] VITALS: BP 129/71
[2020-08-03] MEDS: ASCORBIC ACID 500 MG TAB PO SCH ×2 (09:21→19:56)
[2020-08-03] MEDS: LOSARTAN 50 MG TABLET PO SCH (09:21)
[2020-08-03] MEDS: MULTIVITAMIN TABLET PO SCH (09:22)
[2020-08-03] MEDS: ASPIRIN 81MG TAB.CHEW PO SCH (09:22)
[2020-08-03] MEDS: PANTOPRAZOLE SODIUM 40 MG TABLET.DR PO SCH (09:22)
[2020-08-03] MEDS: ZINC SULFATE 220 CAPSULE PO SCH (09:22)
[2020-08-03] MEDS: METOPROLOL SUCCINATE 50 MG TAB.SR.24H PO SCH (09:23)
[2020-08-03] MEDS: DEXAMETHASONE SOD PHOSPHATE 4 MG/ML 1ML VIAL IVP SCH (09:25)
[2020-08-03] MEDS: FUROSEMIDE 10 MG/ML 2ML VIAL IV SCH ×2 (09:26→19:57)
[2020-08-03] MEDS: ENOXAPARIN SODIUM 40 MG/0.4 ML SYRINGE SQ SCH ×2 (09:27→19:56)
[2020-08-03 11:37] VITALS: BP 107/61
[2020-08-03 15:33] VITALS: BP 96/50
[2020-08-03 19:00] VITALS: BP 110/63
[2020-08-03] MEDS: TRAZODONE HCL 100 MG TABLET PO SCH (19:57)
[2020-08-03] MEDS: POTASSIUM CHLORIDE 20 MEQ ERTAB PO PRN ×2 (20:11→22:41)
[2020-08-03] MEDS: ARTIFICIAL TEARS 3.5 GM OINTMENT OU SCH (21:00)
[2020-08-03 23:00] VITALS: BP 115/60
[2020-08-04 03:00] VITALS: BP 127/61
[2020-08-04] MEDS: INSULIN HUMULIN R 100 UNIT/ML 3ML SQ SCH ×4 (06:04→21:00)
[2020-08-04] MEDS: DIAZEPAM 5 MG TABLET PO PRN (06:37)
--- NOTE | 2020-08-04 06:40 | NUR ---
PATIENT VERY RESTLESS, HOLLERING, ASKING FOR JUICE, REMINDED HE ALREADY HAD X2 ORANGE JUICE (D/T EARLIER BLOOD SUGAR=61MG/DL). DECREASED O2 SATS 70'S-80'S HE CONTINUES HOLLERING AND MOUTH BREATHES. VALIUM PO GIVEN. BLOOD SUGAR RE-YRKSC=680AO/DL. WILL CONTINUE TO MONITOR.
--- NOTE | 2020-08-04 07:30 | NUR ---
PATIENT RESTING COMFORTABLY IN BED, EASILY AROUSABLE, CONTINUES ON HI RIKY 30L, FIO2 100%. NO FURTHER HOLLERING, O2 SATS INCREASED BACK UP TO 90'S. NO ACUTE DISTRESS NOTED. WILL CONTINUE TO MONITOR.
[2020-08-04] MEDS: INSULIN GLARGINE 100 UNITS/ML 10 ML VIAL SQ SCH ×2 (07:31→21:00)
[2020-08-04] MEDS: FUROSEMIDE 10 MG/ML 2ML VIAL IV SCH ×2 (07:45→19:47)
[2020-08-04 08:48] VITALS: BP 108/57
[2020-08-04] MEDS: METOPROLOL SUCCINATE 50 MG TAB.SR.24H PO SCH (09:04)
[2020-08-04] MEDS: PANTOPRAZOLE SODIUM 40 MG TABLET.DR PO SCH (09:04)
[2020-08-04] MEDS: LOSARTAN 50 MG TABLET PO SCH (09:04)
[2020-08-04] MEDS: ASPIRIN 81MG TAB.CHEW PO SCH (09:04)
[2020-08-04] MEDS: ASCORBIC ACID 500 MG TAB PO SCH ×2 (09:04→19:47)
[2020-08-04] MEDS: ZINC SULFATE 220 CAPSULE PO SCH (09:04)
[2020-08-04] MEDS: MULTIVITAMIN TABLET PO SCH (09:04)
[2020-08-04] MEDS: ENOXAPARIN SODIUM 40 MG/0.4 ML SYRINGE SQ SCH ×2 (09:05→19:47)
[2020-08-04] MEDS: DEXAMETHASONE SOD PHOSPHATE 4 MG/ML 1ML VIAL IVP SCH (09:06)
[2020-08-04 12:00] VITALS: BP 109/51
[2020-08-04 19:25] VITALS: BP 126/59
[2020-08-04] MEDS: ARTIFICIAL TEARS 3.5 GM OINTMENT OU SCH (19:47)
[2020-08-04] MEDS: TRAZODONE HCL 100 MG TABLET PO SCH (19:47)
[2020-08-04 23:35] VITALS: BP 112/59
[2020-08-05] VITALS (39 sets, daily range): BP systolic 72–157; BP diastolic 31–87
[2020-08-05 04:27] LABS: ABG BASE EXCESS 0.2 mmol/L (-2.0-3.0); ABG HCO3 22.9 mmol/L (21.0-28.0); ABG OXYGEN SATURATION 81.9 % (95.0-99.0); ABG PCO2 32 mmHg (35-48)
[2020-08-05 04:39] LABS: BASOPHILS % (AUTO) 0.2 % (0.0-5.0); EOSINOPHILS % (AUTO) 0.9 % (0.0-8.0); HEMATOCRIT 45.2 % (42-54); MEAN CORPUSCULAR VOLUME 87.9 fL (79-99); MONOCYTES % (AUTO) 1.9 % (3.0-13.0); NEUTROPHILS % (AUTO) 92.8 % (40.0-77.0); PLATELET COUNT (AUTO) 317 K/uL (130-400); RED BLOOD CELL COUNT(AUTO) 5.14 MIL/uL (4.50-6.20); RED CELL DISTRIBUTION WIDTH 14.2 % (11.0-15.5); WHITE BLOOD COUNT (AUTO) 22.2 K/uL (4.8-10.8)
[2020-08-05 05:24] LABS: ALBUMIN 2.2 g/dL (3.5-5.0); BILIRUBIN,TOTAL 0.7 mg/dL (0.2-1.0); CREATININE 1.1 mg/dL (0.5-1.5); MAGNESIUM 3.1 mg/dL (1.80-2.40); PHOSPHORUS 3.9 mg/dL (2.5-4.9); POTASSIUM 3.4 mmol/L (3.5-5.1); TOTAL PROTEIN, SERUM 7.3 g/dL (6.0-8.3)
[2020-08-05] MEDS: INSULIN HUMULIN R 100 UNIT/ML 3ML SQ SCH ×4 (06:37→20:38)
[2020-08-05] MEDS: DEXTROSE 50%-WATER 50 ML DISP.SYRIN IV PRN (06:49)
[2020-08-05] MEDS: INSULIN GLARGINE 100 UNITS/ML 10 ML VIAL SQ SCH ×2 (06:58→20:38)
[2020-08-05] MEDS ORDERED: LORAZEPAM 2 MG/ML 1 ML VIAL ONE (07:38)
[2020-08-05] MEDS: FUROSEMIDE 10 MG/ML 2ML VIAL IV SCH ×2 (07:49→19:45)
[2020-08-05] MEDS: DIAZEPAM 5 MG TABLET PO PRN ×2 (07:51→22:47)
[2020-08-05] MEDS: ENOXAPARIN SODIUM 40 MG/0.4 ML SYRINGE SQ SCH ×2 (07:59→19:51)
[2020-08-05] MEDS: DEXAMETHASONE SOD PHOSPHATE 4 MG/ML 1ML VIAL IVP SCH (07:59)
[2020-08-05] MEDS: ASCORBIC ACID 500 MG TAB PO SCH ×2 (08:00→19:51)
[2020-08-05] MEDS: PANTOPRAZOLE SODIUM 40 MG TABLET.DR PO SCH (08:00)
[2020-08-05] MEDS: METOPROLOL SUCCINATE 50 MG TAB.SR.24H PO SCH (08:00)
[2020-08-05] MEDS: MULTIVITAMIN TABLET PO SCH (08:00)
[2020-08-05] MEDS: ZINC SULFATE 220 CAPSULE PO SCH (08:00)
[2020-08-05] MEDS: LOSARTAN 50 MG TABLET PO SCH (08:00)
--- NOTE | 2020-08-05 08:00 | NUR ---
PATIENT CONDITION UPON ASSESSMENT, NOTED PATIENT TO BE ORIENTED TO PERSON, PLACE, AND TIME. AT THIS TIME, PATIENT REFUSING TO WEAR BIPAP OR MASK BECAUSE IT MAKES HIM UNCOMFORTABLE. NOTED TO BE SWINGING AT STAFF, CURSING, AND STATING TO GET OUT AND LEAVE HIM ALONE. ADVISED PATIENT OF CONSEQUENCES OF NOT WEARING MASK OR BIPAP. STATED HE WOULD WEAR NASAL CANNULA ONLY AND THAT HE DIDNT CARE BECAUSE HE FELT ANXIOUS. CALL PLACED TO [facility] TO ADVISE OF PATIENT CONDITION.
[2020-08-05] MEDS: ASPIRIN 81MG TAB.CHEW PO SCH (08:04)
--- NOTE | 2020-08-05 08:15 | NUR ---
PATIENT NOTED TO BE RESTLESS, WITH AN OXYGEN SATURATION OF 60'S-80'S. REPORTED TO YONAS HERNANDEZ NP. PATIENT GIVEN LORAZEPAM 2MG IVP ORDERED. PATIENT APPEARED MORE CALM. VOICED RELIEF AND ALLOWED BIPAP TO BE APPLIED. OXYGEN Saturations then kasey to 92%. no distress noted Addendum: 08/05/20 at 1219 by LAUREL WHITNEY RN RN YONAS QUISPE NP, NOT YONAS HERNANDEZ NP
--- NOTE | 2020-08-05 08:50 | NUR ---
PATIENT NOTED TO BE AGONAL BREATHING AND PULSELESS, CODE BLUE CALLED AND TEAM ARRIVED. CHEST COMPRESSIONS STARTED FOR TWO MINUTES, PATIENT RECEIVED 1MG OF EPINEPHRINE FOLLOWED BY 10CC OF 0.9%NS FLUSH. 08, ARRIVED TO INTUBATE PATIENT; SEE CORRESPONDING HANDWRITTEN NOTE. YONAS HERNANDEZ NP NOTIFIED. 915: PATIENT TRANSFERRED TO ICU IN CRITICAL CONDITION. REPORT GIVEN TO YEIMI BRIGGS RN. Addendum: 08/05/20 at 1217 by LAUREL WHITNEY RN RN YONAS QUISPE NP (NOT DAVID MENTIONED)
--- NOTE | 2020-08-05 09:12 | NUR ---
TRANSFER Transferred to room 211 post arrest. Pt's family updated by RAMESH Cabrales.
[2020-08-05] MEDS ORDERED: MIDAZOLAM 100MG-0.9% NS 100ML 100 ML IV PRN (09:15)
[2020-08-05] MEDS ORDERED: FENTANYL 2500MCG+NS 250ML 250 ML IV PRN (09:15)
[2020-08-05] MEDS ORDERED: NOREPINEPHRINE 4MG/NS 250ML 250 ML IV PRN (09:15)
[2020-08-05 09:21] LABS: ALBUMIN 2.1 g/dL (3.5-5.0); BILIRUBIN,TOTAL 0.6 mg/dL (0.2-1.0); CREATININE 1.6 mg/dL (0.5-1.5); MAGNESIUM 3.1 mg/dL (1.80-2.40); PHOSPHORUS 5.2 mg/dL (2.5-4.9)
[2020-08-05 09:25] LABS: ABG BASE EXCESS -10.1 mmol/L (-2.0-3.0); ABG HCO3 20.7 mmol/L (21.0-28.0); ABG OXYGEN SATURATION 90.7 % (95.0-99.0); ABG PCO2 68 mmHg (35-48)
[2020-08-05 09:33] LABS: TOTAL PROTEIN, SERUM 6.6 g/dL (6.0-8.3)
--- NOTE | 2020-08-05 09:55 | NUR ---
STATUS Continued high pressure alarm on vent - R.T. aware. CXR repeated to confirm proper position of ETT - pending report. Pt is in no visible distress. SPO2 100%. Pt showing signs of arousal post intubation. Versed gtt initiated for light sedation in the event pt is waking in the presence of paralytic use. ST on tele. NIBP acceptable.
[2020-08-05 10:05] LABS: BASOPHILS % (AUTO) 0.3 % (0.0-5.0); EOSINOPHILS % (AUTO) 0.4 % (0.0-8.0); HEMATOCRIT 44.1 % (42-54); LYMPHOCYTES % (AUTO) 2.4 % (21.0-51.0); MEAN CORPUSCULAR HEMOGLOBIN 29.1 pg (27.0-33.0); MEAN CORPUSCULAR VOLUME 91.1 fL (79-99); MONOCYTES % (AUTO) 2.6 % (3.0-13.0); NEUTROPHILS % (AUTO) 91.3 % (40.0-77.0); PLATELET COUNT (AUTO) 372 K/uL (130-400); RED BLOOD CELL COUNT(AUTO) 4.84 MIL/uL (4.50-6.20); RED CELL DISTRIBUTION WIDTH 14.2 % (11.0-15.5)
[2020-08-05] MEDS ORDERED: SODIUM BICARB 50MEQ 50ML VIAL 100 ML ONE (10:44)
[2020-08-05] MEDS ORDERED: SODIUM BICARB 50MEQ 50ML VIAL 50 ML ONE (11:20)
--- NOTE | 2020-08-05 11:55 | NUR ---
FAMILY UPDATE Spoke to pt's spouse by phone - updated. Informed consent obtained for PICC insertion.
[2020-08-05 12:00] LABS: INR 1.11 (0.85-1.15); PARTIAL THROMBOPLASTIN TIME 34.1 SEC (26.3-35.5); PROTHROMBIN TIME 11.9 SEC (9.6-11.6)
[2020-08-05 12:06] LABS: LYMPHOCYTES % (MANUAL) 5 % (22-44); MAN.DIFF COMMENT-IMPRESSION MANUAL DIFFERENTIAL; MONOCYTES % (MANUAL) 2 % (2-9); PLATELET MORPHOLOGY COMMENT ADEQUATE; SEGMENTED NEUTROPHILS % 93 % (40-70)
--- NOTE | 2020-08-05 16:22 | NUR ---
PT CARE PICC insertion in progress. No acute changes in pt's overall status. Sedated - fentanyl gtt @150mcg/hr, versed gtt @6mg/hr; levophed gtt @15mcg/min. VS as recorded. ST on tele. Coarse breath sounds throughout. Withdraws from noxious stimulation. No eye opening in response to verbal cues.
[2020-08-05] MEDS ORDERED: NOREPINEPHRINE BITARTRATE 32 MG in SODIUM CHLORIDE 0.9% 250 ML IV PRN (18:45)
--- NOTE | 2020-08-05 19:04 | NUR ---
STATUS No acute changes in pt's status. Care of pt endorsed to 7P RN.
[2020-08-05] MEDS: ARTIFICIAL TEARS 3.5 GM OINTMENT OU SCH (19:50)
[2020-08-05] MEDS: TRAZODONE HCL 100 MG TABLET PO SCH (19:51)
[2020-08-06] VITALS (20 sets, daily range): BP systolic 54–145; BP diastolic 26–90
[2020-08-06] MEDS ORDERED: SODIUM CHLORIDE 0.9% 1000ML 1,000 ML IV ONE (03:32)
[2020-08-06] MEDS ORDERED: PHENYLEPHRINE HCL 10 MG/ML 1ML VIAL IV ONE (05:04)
[2020-08-06] MEDS ORDERED: PHENYLEPHRINE HCL 50 MG in SODIUM CHLORIDE 0.9% 250 ML IV PRN (05:30)
[2020-08-06] MEDS: DEXTROSE 50%-WATER 50 ML DISP.SYRIN IV PRN (06:44)
[2020-08-06] MEDS: INSULIN GLARGINE 100 UNITS/ML 10 ML VIAL SQ SCH (06:45)
[2020-08-06] MEDS: INSULIN HUMULIN R 100 UNIT/ML 3ML SQ SCH ×2 (06:45→10:45)
[2020-08-06] MEDS: METOPROLOL SUCCINATE 50 MG TAB.SR.24H PO SCH (07:28)
[2020-08-06] MEDS: LOSARTAN 50 MG TABLET PO SCH (07:29)
--- NOTE | 2020-08-06 07:30 | NUR ---
PATIENT CONDITION PATIENT'S B/P 58/42, HEART RATE 113, OXYGEN SATS 79-82% WITH 100% FI02. NOREPINEPHRINE AND PHENYLEPHRINE CURRENTLY AT MAXIMUM DOSES. UPDATED NATE MOHR NP ON PATIENT'S CONDITION AND CODE STATUS. NO FURTHER ORDERS AT THIS TIME. NURSE TO REMAIN AT BEDSIDE FOR CONTINUOUS OBSERVATION
[2020-08-06] MEDS: FUROSEMIDE 10 MG/ML 2ML VIAL IV SCH (07:44)
--- NOTE | 2020-08-06 07:44 | NUR ---
MEDS AFFECTING B/P COZAAR, FUROSEMIDE, AND METOPROLOL HELD DUE TO BLOOD PRESSURE 58/42
--- NOTE | 2020-08-06 08:13 | NUR ---
patient's condition @0813 patient noted to be in asystole, pulseless, and with no blood pressure reading. notified jaiden terry np and wendy wash house supervisor. @0815 patient's spouse, Babs notified of condition. states unsure of which home she will use. will contact other relatives and call facility back.
--- NOTE | 2020-08-06 08:20 | NUR ---
Notified of patient's demise by primary nurse, Marya. Security instructed to retrieve body for holding in morgue. Personal belongings signed in with security. Contacted patient's , Bridget Bearden, and asked about choice of home. states she is currently in quarantine and will most likely choose [facility] but will call Supervisor Locomotive back with confirmation. Will follow up. Primary nurse to contact RUTH. Awaiting reference number.
[2020-08-06 08:23] LABS: BASOPHILS % (AUTO) 0.2 % (0.0-5.0); EOSINOPHILS % (AUTO) 0.9 % (0.0-8.0); HEMATOCRIT 43.5 % (42-54); LYMPHOCYTES % (AUTO) 4.6 % (21.0-51.0); MEAN CORPUSCULAR HEMOGLOBIN 29.1 pg (27.0-33.0); MEAN CORPUSCULAR HGB CONC 29.4 g/dL (32.0-36.0); MEAN CORPUSCULAR VOLUME 98.9 fL (79-99); MONOCYTES % (AUTO) 1.6 % (3.0-13.0); NEUTROPHILS % (AUTO) 92.2 % (40.0-77.0); NUCLEATED RED BLOOD CELLS 0.7 % (0.0-0.19); PLATELET COUNT (AUTO) 161 K/uL (130-400); RED CELL DISTRIBUTION WIDTH 14.8 % (11.0-15.5); WHITE BLOOD COUNT (AUTO) 5.7 K/uL (4.8-10.8)
[2020-08-06] MEDS: PANTOPRAZOLE SODIUM 40 MG TABLET.DR PO SCH (08:28)
[2020-08-06] MEDS: DEXAMETHASONE SOD PHOSPHATE 4 MG/ML 1ML VIAL IVP SCH (08:28)
[2020-08-06] MEDS: MULTIVITAMIN TABLET PO SCH (08:28)
[2020-08-06] MEDS: ASPIRIN 81MG TAB.CHEW PO SCH (08:28)
[2020-08-06] MEDS: ENOXAPARIN SODIUM 40 MG/0.4 ML SYRINGE SQ SCH (08:29)
[2020-08-06] MEDS: ZINC SULFATE 220 CAPSULE PO SCH (08:29)
[2020-08-06] MEDS: ASCORBIC ACID 500 MG TAB PO SCH (08:29)
[2020-08-06 08:41] LABS: POTASSIUM 4.6 mmol/L (3.5-5.1)
[2020-08-06 08:43] LABS: ALBUMIN 1.3 g/dL (3.5-5.0); BILIRUBIN,TOTAL 0.7 mg/dL (0.2-1.0); MAGNESIUM 4.2 mg/dL (1.80-2.40); PHOSPHORUS 6.9 mg/dL (2.5-4.9); TOTAL PROTEIN, SERUM 5.4 g/dL (6.0-8.3)
--- NOTE | 2020-08-06 11:00 | NUR ---
POST-MORTEM CARE DONE. SPOKE WITH GAMAL MARTEL, PUZZLE ASSEMBLER. NO PLANS FOR AUTOPSY PER PATIENT'S . ALL IV LINES, PERIPHERALLY INSERTED CENTRAL CATHETER, MESSER CATHETER, AND ENDOTRACHEAL TUBE REMOVED. PATIENT TRANSFERRED TO [facility]. SECURITY OFFICE NOTIFIED THAT PATIENT READY TO BE PICKED UP. VOICED UNDERSTANDING.
--- NOTE | 2020-08-06 11:23 | NUR ---
PER GAMAL MARTEL, BAG REPAIRER, NOTIFY [employer] CONCERNING PATIENT'S . SPOKE WITH COREY, PROVIDED REFERENCE NUMBER FOLLOWS: [id number]. STATES PATIENT WILL NOT BE CONSIDERED FOR ORGAN DONATION, THUS NO RETURN CALL SHOULD BE EXPECTED. NOTIFIED GAMAL MARTEL, BAG REPAIRER OF THE ABOVE. VOICED UNDERSTANDING.
--- NOTE | 2020-08-06 12:00 | NUR ---
UPDATE SECURITY DEPARTMENT ARRIVED AND PATIENT TRANSFERRED TO [facility] [place] VIA GURNEY.
== END 2020-08-06 12:22 | disposition expired | DRG 208 ==
LOC: EDH 23:57 → EDHIP 07-24 02:16 → OBSVTOIN 07-24 02:16 → 2BH 07-24 10:34 → 2AH 07-29 13:28 → 2CV 08-05 09:19
PROVIDERS: ADMIT Internal Medicine Critical Care Medicine; ATTEND Internal Medicine Critical Care Medicine
PROC: XW033E5 Introduction of Remdesivir Anti-infective into Peripheral Vein, Percutaneous Approach, New Technology Group 5 (ICD-10-PCS; 2020-07-25)
PROC: XW13325 Transfusion of Convalescent Plasma (Nonautologous) into Peripheral Vein, Percutaneous Approach, New Technology Group 5 (ICD-10-PCS; 2020-07-25)
PROC: 5A09357 Assistance with Respiratory Ventilation, Less than 24 Consecutive Hours, Continuous Positive Airway Pressure (ICD-10-PCS; 2020-07-28)
PROC: 5A1935Z Respiratory Ventilation, Less than 24 Consecutive Hours (ICD-10-PCS; principal; 2020-08-05)
PROC: 5A09357 Assistance with Respiratory Ventilation, Less than 24 Consecutive Hours, Continuous Positive Airway Pressure (ICD-10-PCS; 2020-08-05)
PROC: 0BH17EZ Insertion of Endotracheal Airway into Trachea, Via Natural or Artificial Opening (ICD-10-PCS; 2020-08-05)
PROC: 5A12012 Performance of Cardiac Output, Single, Manual (ICD-10-PCS; 2020-08-05)
PROC: 02HV33Z Insertion of Infusion Device into Superior Vena Cava, Percutaneous Approach (ICD-10-PCS; 2020-08-05)
DX: U07.1 COVID-19 (principal); J12.89 Other viral pneumonia; J10.08 Influenza due to other identified influenza virus with other specified pneumonia; J96.01 Acute respiratory failure with hypoxia; J44.0 Chronic obstructive pulmonary disease with (acute) lower respiratory infection; I46.9 Cardiac arrest, cause unspecified; E11.40 Type 2 diabetes mellitus with diabetic neuropathy, unspecified; E11.51 Type 2 diabetes mellitus with diabetic peripheral angiopathy without gangrene; E78.5 Hyperlipidemia, unspecified; I10 Essential (primary) hypertension; Z66 Do not resuscitate; Z79.82 Long term (current) use of aspirin; Z87.891 Personal history of nicotine dependence; Z89.511 Acquired absence of right leg below knee; Z91.19 Patient's noncompliance with other medical treatment and regimen
CPT/HCPCS: 31500; 36415; 36430; 36600; 71045; 71275; 80048; 80053; 80076; 81001; 82565; 82728; 82803; 82948; 83605; 83615; 83690; 83735; 83880; 84100; 84145; 84484; 85025; 85027; 85378; 85610; 85730; 86140; 86850; 86900; 86901; 86927; 87040; 87088; 87426; 87804; 92950; 93005; 93971; 94002; 94003; 94660; C1894; G0378; J0456; J0696; J1100; J1610; J1650; J1815; J1940; J2060; J2370; J3010; J3490; J7030; J7040; J7050; J7070; J8540; Q9967